=== PATIENT | female | born 1975 | race Caucasian/White ===

== ENCOUNTER 2017-02-15 07:03 | Emergency (ER) | payer OTHER ==
[~2017-02-15] VITALS: Ht 157.5 cm; Wt 81.7 kg
[~2017-02-15 07:03] MED LIST: BACTRIM DS TAB1 EACH PO
[2017-02-15] MEDS ORDERED: ATIVAN0.5 MG PO (07:28)
[2017-02-15] MEDS ORDERED: PROZAC20 MG PO (07:28)
[2017-02-15 08:00] LABS: ABSOLUTE NEUTROPHILS 6.8 thou/uL (1.4-8.2); BASOPHILS 0.6 % (0.0-2.0); EOSINOPHILS 1.8 % (0.0-3.0); HEMOGLOBIN 12.1 gm/dL (12.0-15.0); LYMPHOCYTES 24.9 % (24.0-44.0); MCH 29.5 pg (26.0-34.0); MCHC 33.6 g/dL (28.0-37.0); MCV 87.7 fL (80.0-100.0); MONOCYTES 7.8 % (1.0-8.0); POLYS 64.9 % (36.0-66.0); RDW 14.5 % (10.5-14.5); WBC 10.4 thou/uL (4.0-11.0)
[2017-02-15 08:04] LABS: MANUAL DIFF NO
[2017-02-15 08:29] LABS: CALCIUM 8.7 mg/dL (8.5-10.1); CREATININE 0.8 mg/dL (0.6-1.0); POTASSIUM 3.8 mmol/L (3.5-5.1)
[2017-02-15 08:35] LABS: ALBUMIN 3.6 g/dL (3.4-5.0); TOTAL BILIRUBIN 0.4 mg/dL (<0.1-1.0); TOTAL PROTEIN 7.3 g/dL (6.4-8.2)
[2017-02-15 09:10] LABS: PLATELET COUNT 356 thou/uL (150-400)
[2017-02-15] MEDS ORDERED: NORCO 5-325 TA1 EACH PO (09:27)
[2017-02-15] MEDS ORDERED: FLOMAX0.4 MG PO (09:27)
[2017-02-15] MEDS ORDERED: TORADOL 10 MG T10 MG PO (09:27)
[2017-02-15 09:53] VITALS: BP 121/65
== END 2017-02-15 10:07 | disposition home or self-care (01) ==
LOC: ER 07:03
PROVIDERS: Emergency Medicine
DX: N20.1 Calculus of ureter (principal); Z88.5 Allergy status to narcotic agent; Z88.8 Allergy status to other drugs, medicaments and biological substances